=== PATIENT | female | born 1985 | race Caucasian/White ===

== ENCOUNTER → 2018-10-04 | Day surgery (SDC) | payer OTHER, MEDICARE ==
[~2018-10-04] MED LIST: FENTANYL CITRATE/PF 100MCG/2 ML INJ ONE; MIDAZOLAM HCL 2 MG/2 ML VIAL ONE; PROPOFOL IV EMULSION 10 MG/ML 50 ML VIAL ONE
--- OUTSIDE RECORDS SUMMARY | 2018-10-04 08:27 | XMS REPORT ---
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 Allergies, Adverse Reactions, Alerts This patient has no known allergies or adverse reactions. Medications This patient has no known medications. Results Test Description Test Time Test Comments Text Results Atomic Results Result Comments Abdomen 1 View (KUB) 2018-09-24 10:43:00 [place] [address] RADIOLOGY SERVICES REPORT Name: ELIA MONTES DE OCA Acct Number: [id number] :1985 Age:33 Sex:F Ord Phys: Elyssa Gaston MD Unit Number: [id number] [facility] Dr: NONE Status: ADM IN [address] [place] [address] Exam Date: 09/24/18 EXAM DESCRIPTION: RAD - Abdomen 1 View (KUB) - 09/24/2018 10:26 am CLINICAL HISTORY: Abdomen pain. FINDINGS: The bowel gas pattern is unremarkable. Moderate amount of stool suspected within the colon No significant abnormal calcification is displayed Signed By: Ravi Delgado MD Signed AT: 09/24/18 1043 Complete blood count (CBC) with automated white blood cell (WBC) differential 2018-09-24 00:08:00 White blood cell count (test ofyk=APS9887) 7.7 4.3-10.9 Blood erythrocytes count (number/volume) (test cgck=18091-4) 3.60 M/ul 3.86-4.86 Hemoglobin measurement (test gqcv=FGE3380) 11.4 g/dL 12.0-15.0 Blood hematocrit (volume fraction) (test wcoi=31199-1) 34.0 % 36.0-45.0 MCV (test nvic=AYU6067) 94.2 fL 80-100 31.7 MCHC (test code=MCHC) 33.7 g/dL 32.0-36.0 Platelets (test code=PLT) 187 152-406 Red Cell Distribution Width (test code=RDW) 12.9 % 12.1-15.2 Blood platelet mean volume (test mise=36278-9) 8.3 fL 7.6-11.3 Neutrophils % (test code=IAN%) 57.2 % 41.7-73.7 Lymphocytes/leuk NFr Bld (test dggb=91820-3) 33.1 % 15.3-44.8 Monocyte percentage (test heok=9702-7) 7.9 % 3.3-12.3 Eosinophil % (test qybl=293-5) 1.6 % 0-4.4 Basophil % (test spvb=88212-6) 0.2 % 0-1.3 Absolute neutrophil count (test zjzy=314-5) 4.4 1.8-8.0 Absolute lymphocyte count (test vpmg=60315-5) 2.6 0.7-4.9 Absolute monocyte count (test oocx=260-5) 0.6 0.1-1.3 Absolute Eosinophils (test code=EOA) 0.1 0-0.5 Absolute Basophils (test code=BASA) 0.0 0-0.5 Primary Language EnglishComplete blood count (CBC) with automated white blood cell (WBC) nglqdfljasfr0251-94-94 12:50:00* Test Item Value Reference Range Comments White blood cell count (test aubf=VVA1600) 6.4 4.3-10.9 Blood erythrocytes count (number/volume) (test econ=49310-1) 3.40 M/ul 3.86-4.86 Hemoglobin measurement (test svdd=SXA5468) 10.9 g/dL 12.0-15.0 Blood hematocrit (volume fraction) (test vwnr=43704-0) 32.2 % 36.0-45.0 MCV (test lzya=IKS4990) 94.7 fL 80-100 32.0 MCHC (test code=MCHC) 33.8 g/dL 32.0-36.0 Platelets (test code=PLT) 166 152-406 Red Cell Distribution Width (test code=RDW) 12.9 % 12.1-15.2 Blood platelet mean volume (test hpwh=93747-4) 8.3 fL 7.6-11.3 Neutrophils % (test code=IAN%) 60.6 % 41.7-73.7 Lymphocytes/leuk NFr Bld (test elux=22133-6) 30.0 % 15.3-44.8 Monocyte percentage (test gzcg=5823-3) 7.8 % 3.3-12.3 Eosinophil % (test wwme=143-9) 0.9 % 0-4.4 Basophil % (test pntv=54124-0) 0.7 % 0-1.3 Absolute neutrophil count (test ehdc=052-3) 3.9 1.8-8.0 Absolute lymphocyte count (test zdgn=72748-1) 1.9 0.7-4.9 Absolute monocyte count (test zkin=230-6) 0.5 0.1-1.3 Absolute Eosinophils (test code=EOA) 0.1 0-0.5 Absolute Basophils (test code=BASA) 0.0 0-0.5 Primary Language [facility] Metabolic Rukes6559-80-01 05:58:00* Test Item Value Reference Range Comments Serum or plasma sodium measurement (moles/volume) (test qovr=6036-9) 143 mmol/L 136-145 Potassium [Moles/volume] in Serum or Plasma (test cwnl=8626-7) 4.0 mmol/L 3.5-5.1 Chloride [Moles/volume] in Serum or Plasma (test dbqr=9510-3) 114 mmol/L 98-107 Carbon dioxide, total [Moles/volume] in Serum or Plasma (test klfl=3669-4) 22 mmol/L 21-32 Glucose [Mass/volume] in Serum or Plasma (test bvwk=4514-5) 90 mg/dL 74-106 Urea nitrogen [Mass/volume] in Serum or Plasma (test jpid=8844-0) 11 mg/dL 7-18 Creatinine [Mass/volume] in Serum or Plasma (test wdit=1470-6) 0.41 mg/dL 0.55-1.3 Glomerular Filtration Rate (test code=GFR) > 90 =/>90 FOR CHRONIC KIDNEY DISEASE: GFR STAGE DESCRIPTION=/>90 STAGE 1 NORMAL--OR-- MINIMAL KIDNEY DAMAGE WITH NORMAL GFR 60-89 STAGE 2 MILD DECREASE IN GFR 30-59 STAGE 3 MODERATE DECREASE IN GFR 15-29 STAGE 4 SEVERE DECREASE IN GFR <15 STAGE 5 KIDNEY FAILURE The Glomerular Filtration Rate (GFR) has been calculated using the IDMS-Traceable MDRD Study Equation. Calcium [Mass/volume] in Serum or Plasma (test ihiu=30455-3) 7.4 mg/dL 8.5-10.1 Primary Language EnglishUrine drug pbljsp3740-69-35 01:04:00* Test Item Value Reference Range Comments Phencyclidine [Presence] in Urine by Screen method (test mjgk=13503-3) Negative NEGATIVE CUT-OFF LEVEL: 25 ng/mL Benzodiazepines [Presence] in Urine by Screen method (test qzec=13655-5) Negative NEGATIVE CUT-OFF LEVEL: 200 ng/mL Benzoylecgonine [Presence] in Urine by Screen method (test ipvy=15556-5) Negative NEGATIVE CUT-OFF LEVEL: 300 ng/mL Amphetamines [Presence] in Urine by Screen method (test kipj=67812-2) Negative NEGATIVE CUT-OFF LEVEL: 1000 ng/mL Cannabinoids [Presence] in Urine by Screen method (test gmsj=94008-4) Positive NEGATIVE CUT-OFF LEVEL: 50 ng/mL Opiates [Presence] in Urine by Screen method (test mcrb=84658-1) Positive NEGATIVE CUT-OFF LEVEL: 2000 ng/mL Barbiturates [Presence] in Urine by Screen method (test mguu=86586-5) Negative NEGATIVE CUT-OFF LEVEL: 200 ng/mL Screening urine methadone detection using 300 ng/ml cutoff (test vhds=22123-0) Negative NEGATIVE CUT-OFF LEVEL: 300 ng/mL These results are screening test methodology and are to be used only for medical purposes. Positive results have not been confirmed. Unconfirmed screening results must not be used for non-medical purposes (employment or legal testing). For a confirmed analytical result, GM/MS is the preferred method and must be sent to a Reference Laboratory. Primary Language EnglishComplete blood count (CBC) with automated white blood cell (WBC) swkbmdlnttbj5216-30-59 00:01:00* Test Item Value Reference Range Comments White blood cell count (test asta=HUX3838) 6.9 4.3-10.9 Blood erythrocytes count (number/volume) (test secs=16282-4) 3.50 M/ul 3.86-4.86 Hemoglobin measurement (test aqbp=VXD0394) 11.3 g/dL 12.0-15.0 Blood hematocrit (volume fraction) (test aqob=28552-6) 33.3 % 36.0-45.0 MCV (test zsco=FMG8902) 95.1 fL 80-100 32.2 MCHC (test code=MCHC) 33.9 g/dL 32.0-36.0 Platelets (test code=PLT) 163 152-406 Red Cell Distribution Width (test code=RDW) 12.7 % 12.1-15.2 Blood platelet mean volume (test xjks=09584-4) 7.9 fL 7.6-11.3 Neutrophils % (test code=IAN%) 57.6 % 41.7-73.7 Lymphocytes/leuk NFr Bld (test ihvi=52945-4) 33.9 % 15.3-44.8 Monocyte percentage (test zouf=2354-1) 6.8 % 3.3-12.3 Eosinophil % (test jyir=404-7) 1.4 % 0-4.4 Basophil % (test yztc=36966-4) 0.3 % 0-1.3 Absolute neutrophil count (test vhsv=261-8) 4.0 1.8-8.0 Absolute lymphocyte count (test smji=82760-2) 2.3 0.7-4.9 Absolute monocyte count (test augj=869-2) 0.5 0.1-1.3 Absolute Eosinophils (test code=EOA) 0.1 0-0.5 Absolute Basophils (test code=BASA) 0.0 0-0.5 Primary Language EnglishAbdomen W Fjupq7796-17-49 16:08:00[place] [address] RADIOLOGY SERVICES REPORT Name: ELIA MONTES DE OCA Acct Number: [id number] :1985 Age:33 Sex:F Ord Phys: Kierra Lo MD Unit Number: [id number] [facility] Dr: NONE Status: ADM IN [address] [place] [address]A Exam Date: 09/22/18 EXAM DESCRIPTION: RAD - Abdomen W Erect - 09/22/2018 3:41 pm CLINICAL HISTORY: Abdomen pain. FINDINGS: The bowel gas pattern is unremarkable. A large amount of stool is present throughout the colon. Free air is not seen beneath the diaphragm Signed By: Ravi Delgado MD Signed AT: 1609 Hurlxaixxp0135-65-29 06:21:00* Test Item Value Reference Range Comments Urine color (test nyst=9123-0) YELLOW Urine appearance determination (test qzfe=6354-2) CLEAR Urine specific gravity measurement (test bkcj=3824-8) 1.025 1.005-1.030 Urine glucose detection (test mnwv=7549-4) Negative NEG Urine bilirubin detection (test sezb=2264-4) Negative NEG Urine Ketones (test code=UKET) NEGATIVE NEG Urine blood detection (test ksmf=50296-2) 2+ NEG Urine pH (test qpbi=9609-5) 6.0 5.0-7.0 Urinalysis with microscopy (test iphy=02657-5) NEGATIVE NEG Urine urobilinogen detection (test slme=02717-2) 1.0 0.2-1.0 Urine Nitrate (test code=UNIT) NEGATIVE NEG Urine Leukocyte Esterase (test code=UESTR) NEGATIVE NEG Primary Language Monegasque HOW IS URINE COLLECTED? Clean Catch UrineMicroscopic examination of wcxfn6486-68-42 06:21:00* Test Item Value Reference Range Comments Urine WBC (test code=UWBC) NONE SEEN <5 Urine sediment erythrocyte count by microscopy (number/high power field) (test abrd=40203-8) <5 NONE SEEN Bacteria detection in urine sediment by light microscopy (test ldgq=00629-9) <20 <20 Sqamous Epithelial (test code=SQEP) <5 NONE SEEN Urinalysis with reflex to culture (test dqds=87983-1) NOT NEEDED Culture is not indicated. Primary Language Monegasque HOW IS URINE COLLECTED? Clean Catch UrineBasic Metabolic Jlhvl9630-59-05 05:54:00* Test Item Value Reference Range Comments Serum or plasma sodium measurement (moles/volume) (test tivn=8396-4) 140 mmol/L 136-145 Potassium [Moles/volume] in Serum or Plasma (test xqbf=0251-4) 3.5 mmol/L 3.5-5.1 Chloride [Moles/volume] in Serum or Plasma (test opdi=7021-7) 112 mmol/L 98-107 Carbon dioxide, total [Moles/volume] in Serum or Plasma (test lenj=0654-8) 22 mmol/L 21-32 Glucose [Mass/volume] in Serum or Plasma (test mqhd=6657-1) 84 mg/dL 74-106 Urea nitrogen [Mass/volume] in Serum or Plasma (test axut=7011-7) 10 mg/dL 7-18 Creatinine [Mass/volume] in Serum or Plasma (test quiq=5569-6) 0.35 mg/dL 0.55-1.3 Glomerular Filtration Rate (test code=GFR) > 90 =/>90 FOR CHRONIC KIDNEY DISEASE: GFR STAGE DESCRIPTION=/>90 STAGE 1 NORMAL--OR-- MINIMAL KIDNEY DAMAGE WITH NORMAL GFR 60-89 STAGE 2 MILD DECREASE IN GFR 30-59 STAGE 3 MODERATE DECREASE IN GFR 15-29 STAGE 4 SEVERE DECREASE IN GFR <15 STAGE 5 KIDNEY FAILURE The Glomerular Filtration Rate (GFR) has been calculated using the IDMS-Traceable MDRD Study Equation. Calcium [Mass/volume] in Serum or Plasma (test ppbq=56453-3) 7.4 mg/dL 8.5-10.1 Primary Language EnglishMagnesium [Mass/volume] in Serum or Brrchq6641-61-82 05:54:00* Test Item Value Reference Range Comments Magnesium [Mass/volume] in Serum or Plasma (test uzsk=62390-2) 2.0 mg/dL 1.8-2.4 Primary Language EnglishComplete blood count (CBC) with automated white blood cell (WBC) yelrlbilwyoe4077-17-25 05:36:00* Test Item Value Reference Range Comments White blood cell count (test cpcj=UUN7226) 6.7 4.3-10.9 Blood erythrocytes count (number/volume) (test odnl=29643-8) 3.61 M/ul 3.86-4.86 Hemoglobin measurement (test lyqx=FPN1496) 11.6 g/dL 12.0-15.0 Blood hematocrit (volume fraction) (test nxpi=17541-0) 33.8 % 36.0-45.0 MCV (test fmfg=MKA2122) 93.5 fL 80-100 32.1 MCHC (test code=MCHC) 34.3 g/dL 32.0-36.0 Platelets (test code=PLT) 179 152-406 Red Cell Distribution Width (test code=RDW) 12.9 % 12.1-15.2 Blood platelet mean volume (test sjby=00361-3) 8.0 fL 7.6-11.3 Neutrophils % (test code=IAN%) 47.1 % 41.7-73.7 Lymphocytes/leuk NFr Bld (test kcoh=48190-8) 43.7 % 15.3-44.8 Monocyte percentage (test svry=0033-6) 8.2 % 3.3-12.3 Eosinophil % (test fzfc=577-9) 0.7 % 0-4.4 Basophil % (test zblj=58876-2) 0.3 % 0-1.3 Absolute neutrophil count (test pror=535-1) 3.1 1.8-8.0 Absolute lymphocyte count (test pfbq=99022-3) 2.9 0.7-4.9 Absolute monocyte count (test gujd=774-9) 0.5 0.1-1.3 Absolute Eosinophils (test code=EOA) 0.0 0-0.5 Absolute Basophils (test code=BASA) 0.0 0-0.5 Primary Language EnglishChoriogonadotropin [Units/volume] in Serum or Plasma 2018-09-21 15:56:00* Test Item Value Reference Range Comments Choriogonadotropin [Units/volume] in Serum or Plasma (test lnqk=33739-8) 02402 [iU]/L 1-3 Comment Bed:13Microscopic examination of hepdk0239-39-00 15:27:00* Test Item Value Reference Range Comments Urine WBC (test code=UWBC) <5 <5 Urine sediment erythrocyte count by microscopy (number/high power field) (test kdfi=64209-7) <5 NONE SEEN Bacteria detection in urine sediment by light microscopy (test peqk=84179-2) <20 <20 Sqamous Epithelial (test code=SQEP) 5-10 NONE SEEN Urinalysis with reflex to culture (test luao=49363-7) NOT NEEDED Culture is not indicated. Comment Bed:13Urine test at point of jovz2462-88-08 15:26:00* Test Item Value Reference Range Comments Urine Test (test code=UPG) POS NEG Urine specific gravity measurement (test ymdi=6412-2) 1.010 1.005-1.030 Tested by: elm BLOOD: TRACE GLUCOSE: NEG KETONES: 3+ LEUKOCYTES: NEG NITRITE: NE G PH: 7.0 PROTEIN: NEG elm POS elm TRACE NEG 3+ NEG NEG 7.0 NEG Y 1.010Urine dipstick testing at piaef-se-ypwb5594-05-17 15:26:00* Test Item Value Reference Range Comments Urine glucose detection (test tneo=8030-2) Negative NEG Urine Ketones (test code=UKET) 3+ NEG Urine blood detection (test xijw=30709-6) TRACE NEG Urine pH (test dvmk=7952-0) 7.0 5.0-7.0 Urinalysis with microscopy (test fjxv=31404-8) NEGATIVE NEG Urine Nitrate (test code=UNIT) NEGATIVE NEG Urine Leukocyte Esterase (test code=UESTR) NEGATIVE NEG Tested by: elm BLOOD: TRACE GLUCOSE: NEG KETONES: 3+ LEUKOCYTES: NEG NITRITE: NE G PH: 7.0 PROTEIN: NEG elm POS elm TRACE NEG 3+ NEG NEG 7.0 NEG Y 1.010Abdomen Pelvis W Ndplpavr1395-29-67 12:54:00[facility] [place] [address] RADIOLOGY SERVICES REPORT Name: ELIA MONTES DE OCA Acct Number: [id number] :1985 Age:33 Sex:F Ord Phys: Tom Arana Unit Number: [id number] Prim Care Dr: NONE Status: REG ER ER Exam Date: 09/21/18 EXAM DESCRIPTION: CTAbdomen Pelvis W Contrast - 09/21/2018 12:39 pm CLINICAL HISTORY: Abdominal pain. right flank pain, IV ONLY COMPARISON: Abdomen Exam Limited dated 09/21/2018 TECHNIQUE: Biphasic CT imaging of the abdomen and pelvis was performed with 100 ml non- ionic IV contrast. All CT scans are performed using dose optimization technique as appropriate and may include automated exposure control or mA/KV adjustment according to patient size. FINDINGS: The lung bases are clear. The liver, spleen, pancreas, adrenal glands and kidneys are within normal limits. No bowel obstruction, free air, free fluid or abscess. Cholecystectomy clips. No evidence of significant lymphadenopathy. The uterus and cervix appears edematous with trace fluid in the pelvis. Fluid is also noted in the endometrial stripe measuring up to 3 cm. IMPRESSION: Edematous appearance to the gynecologic organs with fluid in the endometrium and mild fluid in the pelvis noted. Advise clinical correlation for pelvic infla mmatory disease. Signed By: Js Gomez MD Signed AT: 09/05 11/23 1254 Basic Metabolic Pbjqf5996-43-00 11:05:00* Test Item Value Reference Range Comments Serum or plasma sodium measurement (moles/volume) (test venc=3437-2) 139 mmol/L 136-145 Potassium [Moles/volume] in Serum or Plasma (test kqgl=8463-2) 3.8 mmol/L 3.5-5.1 Chloride [Moles/volume] in Serum or Plasma (test rdhr=4368-4) 109 mmol/L 98-107 Carbon dioxide, total [Moles/volume] in Serum or Plasma (test nhaj=3184-2) 24 mmol/L 21-32 Glucose [Mass/volume] in Serum or Plasma (test molc=8402-9) 116 mg/dL 74-106 Urea nitrogen [Mass/volume] in Serum or Plasma (test aiwa=7118-2) 11 mg/dL 7-18 Creatinine [Mass/volume] in Serum or Plasma (test hzek=7877-4) 0.47 mg/dL 0.55-1.3 Glomerular Filtration Rate (test code=GFR) > 90 =/>90 FOR CHRONIC KIDNEY DISEASE: GFR STAGE DESCRIPTION=/>90 STAGE 1 NORMAL--OR-- MINIMAL KIDNEY DAMAGE WITH NORMAL GFR 60-89 STAGE 2 MILD DECREASE IN GFR 30-59 STAGE 3 MODERATE DECREASE IN GFR 15-29 STAGE 4 SEVERE DECREASE IN GFR <15 STAGE 5 KIDNEY FAILURE The Glomerular Filtration Rate (GFR) has been calculated using the IDMS-Traceable MDRD Study Equation. Calcium [Mass/volume] in Serum or Plasma (test zaqq=09815-2) 8.4 mg/dL 8.5-10.1 Comment Bed:13Liver (Hepatic) Yawzfkpl1348-30-09 11:05:00* Test Item Value Reference Range Comments Aspartate aminotransferase [Enzymatic activity/volume] in Serum or Plasma by With P-5 (test zuhw=68714-2) 8 U/L 15-37 Alanine aminotransferase [Enzymatic activity/volume] in Serum or Plasma by With P-5'- (test eajd=0217-8) 18 U/L 12-78 Alkaline phosphatase [Enzymatic activity/volume] in Serum or Plasma (test iwwx=6728-8) 44 U/L 45-117 Bilirubin.total [Mass/volume] in Serum or Plasma (test ipou=0135-6) 0.7 mg/dL 0.2-1.0 Bilirubin.direct [Mass/volume] in Serum or Plasma (test xwer=1051-7) 0.2 mg/dL 0-0.2 Protein [Mass/volume] in Serum or Plasma (test jpwz=6315-5) 6.5 g/dL 6.4-8.2 Albumin [Mass/volume] in Serum or Plasma by Bromocresol purple (BCP) dye binding meth (test uoql=13775-9) 3.6 g/dL 3.4-5.0 Globulin (test code=GLOB) 2.9 g/dL 2.3-3.5 Albumin/Globulin Ratio (test code=A/G) 1.2 1.1-1.8 Comment Bed:13Lipase [Enzymatic activity/volume] in Serum or Oowzar7837-28-05 11:05:00* Test Item Value Reference Range Comments Lipase [Enzymatic activity/volume] in Serum or Plasma (test srvi=8491-2) 123 U/L 73-393 Comment Bed:13Creatinine [Mass/volume] in Serum or Hobovk4161-84-64 10:43:00* Test Item Value Reference Range Comments Creatinine [Mass/volume] in Serum or Plasma (test sewn=4089-5) 0.46 mg/dL 0.55-1.3 Glomerular Filtration Rate (test code=GFRT) > 90 >60 FOR CHRONIC KIDNEY DISEASE: GFR STAGE >60 1 or 2 30-59 3 15-29 4 <15(or dialysis) 5 The Glomerular Filtration Rate (GFR) has been calculated using the IDMS-Traceable MDRD Study Equation. Abdomen Exam Zojzjbi2180-15-84 10:39:[address] [place] [address] [facility] REPORT Name: ELIA MONTES DE OCA Acct Number: [id number] :1985 Age:33 Sex:F Ord Phys: Tom Arana Unit Number: [id number] [facility] Dr: NONE Status: REG ER ER Exam Date: 09/21/18 EXAM DESCRIPTION: US - Abdomen Exam Limited - 09/21/2018 10:28 am CLINICAL HISTORY: abdominal pain, vomiting COMPARISON: No comparisons FINDINGS: The gallbladder demonstrates no gallstones. No pericholecystic fluid or gallbladder wall thickening. The common bile duct is normal measuring 5-6 mm. The liver demonstrates no findings of intrahepatic biliary dilatation. IMPRESSION: Unremarkable examination. Signed By: Js Gomez MD Signed AT: 09/21/18 1039 Complete blood count (CBC) with automated white blood cell (WBC) differential 2018-09-21 10:27:00* Test Item Value Reference Range Comments White blood cell count (test kxtk=PTJ6221) 9.6 4.3-10.9 Blood erythrocytes count (number/volume) (test zzpk=91585-6) 4.53 M/ul 3.86-4.86 Hemoglobin measurement (test dwyz=MSC6541) 14.4 g/dL 12.0-15.0 Blood hematocrit (volume fraction) (test zxqt=29548-4) 42.3 % 36.0-45.0 MCV (test ulrc=ULS6811) 93.3 fL 80-100 31.8 MCHC (test code=MCHC) 34.1 g/dL 32.0-36.0 Platelets (test code=PLT) 243 152-406 Red Cell Distribution Width (test code=RDW) 12.8 % 12.1-15.2 Blood platelet mean volume (test fpjs=32318-4) 7.8 fL 7.6-11.3 Neutrophils % (test code=IAN%) 77.0 % 41.7-73.7 Lymphocytes/leuk NFr Bld (test yext=72105-7) 16.5 % 15.3-44.8 Monocyte percentage (test iglq=0247-6) 6.2 % 3.3-12.3 Eosinophil % (test xgbo=406-1) 0.1 % 0-4.4 Basophil % (test obty=84494-7) 0.2 % 0-1.3 Absolute neutrophil count (test wxam=637-4) 7.4 1.8-8.0 Absolute lymphocyte count (test ctno=75956-3) 1.6 0.7-4.9 Absolute monocyte count (test mdhx=971-4) 0.6 0.1-1.3 Absolute Eosinophils (test code=EOA) 0.0 0-0.5 Absolute Basophils (test code=BASA) 0.0 0-0.5 Urine test at point of bibn1725-87-91 20:58:00* Test Item Value Reference Range Comments Urine Test (test code=UPG) POS NEG Urine specific gravity measurement (test fvqm=4613-8) 1.025 1.005-1.030 Tested by: rv BLOOD: TRACE GLUCOSE: NEG KETONES: 1+ LEUKOCYTES: 3+ NITRITE: NEG PH: 6.5 PROTEIN: 1+ rv POS rv TRACE NEG 1+ 3+ NEG 6.5 1+ Y 1.025Urine dipstick testing at wshsp-op-yfez5452-05-16 20:58:00* Test Item Value Reference Range Comments Urine glucose detection (test gqqv=9117-8) Negative NEG Urine Ketones (test code=UKET) 1+ NEG Urine blood detection (test yorb=82949-0) TRACE NEG Urine pH (test pnio=1351-3) 6.5 5.0-7.0 Urinalysis with microscopy (test yghn=46922-9) 1+ NEG Urine Nitrate (test code=UNIT) NEGATIVE NEG Urine Leukocyte Esterase (test code=UESTR) 3+ NEG Tested by: rv BLOOD: TRACE GLUCOSE: NEG KETONES: 1+ LEUKOCYTES: 3+ NITRITE: NEG PH: 6.5 PROTEIN: 1+ rv POS rv TRACE NEG 1+ 3+ NEG 6.5 1+ Y 1.025Head Brain Wo Dkqt3323-16-86 20:52:00[facility] [place] [address] RADIOLOGY SERVICES REPORT Name: ELIA MONTES DE OCA Acct Number: [id number] :1985 Age:33 Sex:F Ord Phys: Jose M Rodriguez NP Unit Number: [id number] [place] [facility] Dr: NONE Status: REG ER Exam Date: 09/20/18 EXAM DESCRIPTION: CT - Head Brain Wo Cont - 09/20/2018 8:46 pm CLINICAL HISTORY: Head injury with LOC;Headache Trauma, head injury. COMPARISON: <Comparisons> TECHNIQUE: All CT scans are performed using dose optimization technique as appropriate and may include automated exposure control or mA/KV adjustment according to patient size. FINDINGS: No intracranial hemorrhage, hydrocephalus or extra-axial fluid collection.No areas of brain edema or evidence of midline shift. The paranasal sinuses and mastoids are clear. The calvarium is intact. IMPRESSION: No acute intracranial abnormality. Signed By: Js Gomez MD Signed AT: 09/20/182051 Basic Metabolic Sayvu7561-64-36 20:42:00* Test Item Value Reference Range Comments Serum or plasma sodium measurement (moles/volume) (test vsot=2257-4) 139 mmol/L 136-145 Potassium [Moles/volume] in Serum or Plasma (test tkpv=6054-5) 3.6 mmol/L 3.5-5.1 Chloride [Moles/volume] in Serum or Plasma (test voqk=1124-7) 107 mmol/L 98-107 Carbon dioxide, total [Moles/volume] in Serum or Plasma (test owqi=9547-5) 26 mmol/L 21-32 Glucose [Mass/volume] in Serum or Plasma (test uvrx=1246-7) 97 mg/dL 74-106 Urea nitrogen [Mass/volume] in Serum or Plasma (test nfbj=8394-9) 11 mg/dL 7-18 Creatinine [Mass/volume] in Serum or Plasma (test vust=6588-7) 0.53 mg/dL 0.55-1.3 Glomerular Filtration Rate (test code=GFR) > 90 =/>90 FOR CHRONIC KIDNEY DISEASE: GFR STAGE DESCRIPTION=/>90 STAGE 1 NORMAL--OR-- MINIMAL KIDNEY DAMAGE WITH NORMAL GFR 60-89 STAGE 2 MILD DECREASE IN GFR 30-59 STAGE 3 MODERATE DECREASE IN GFR 15-29 STAGE 4 SEVERE DECREASE IN GFR <15 STAGE 5 KIDNEY FAILURE The Glomerular Filtration Rate (GFR) has been calculated using the IDMS-Traceable MDRD Study Equation. Calcium [Mass/volume] in Serum or Plasma (test wehx=60746-6) 8.9 mg/dL 8.5-10.1 Complete blood count (CBC) with automated white blood cell (WBC) differential 2018-09-20 20:32:00* Test Item Value Reference Range Comments White blood cell count (test yqgy=FUZ4549) 10.8 4.3-10.9 Blood erythrocytes count (number/volume) (test ubzx=40622-5) 4.58 M/ul 3.86-4.86 Hemoglobin measurement (test rafz=QRJ0458) 14.6 g/dL 12.0-15.0 Blood hematocrit (volume fraction) (test irbj=07085-9) 43.3 % 36.0-45.0 MCV (test ndaw=ONC9991) 94.5 fL 80-100 31.9 MCHC (test code=MCHC) 33.8 g/dL 32.0-36.0 Platelets (test code=PLT) 230 152-406 Red Cell Distribution Width (test code=RDW) 13.0 % 12.1-15.2 Blood platelet mean volume (test clus=41444-2) 7.8 fL 7.6-11.3 Neutrophils % (test code=IAN%) 67.4 % 41.7-73.7 Lymphocytes/leuk NFr Bld (test bdwt=74448-8) 23.6 % 15.3-44.8 Monocyte percentage (test uths=3614-6) 7.7 % 3.3-12.3 Eosinophil % (test fujx=219-4) 1.0 % 0-4.4 Basophil % (test ucmf=61000-4) 0.3 % 0-1.3 Absolute neutrophil count (test sqcn=091-7) 7.3 1.8-8.0 Absolute lymphocyte count (test mdny=82446-4) 2.5 0.7-4.9 Absolute monocyte count (test hrdc=244-4) 0.8 0.1-1.3 Absolute Eosinophils (test code=EOA) 0.1 0-0.5 Absolute Basophils (test code=BASA) 0.0 0-0.5 Comment Bed:[address] [place] [address] Single Gcit3755-09-54 08:17:00[place] [address] [facility] REPORT Name: ELIA MONTES DE OCA Acct Number: [id number] :1985 Age:33 Sex:F Ord Phys: Ryan Swain MD Unit Number: [id number] [facility] Dr: NONE Status: DEP ER ER Exam Date: 06/05/18 EXAM DESCRIPTION: RAD - Chest Single View - 06/05/2018 12:35 am CLINICAL HISTORY: CHEST PAIN Chest pain. COMPARISON: No comparisons FINDINGS: Portable techni que limits examination quality. The lungs are grossly clear. The heart is normal in size. No displaced fractures. IMPRESSION: No acute intrathoraci c process suspected. Signed By: Js Gomez MD Signed AT: 06/05/18 0817 Prothrombin time (PT) with international normalized ratio (INR) 2018-06-05 01:16:00* Test Item Value Reference Range Comments PT Prothrombin Time (test code=PROTIME) 11.9 s 9.5-12.5 INR in Blood by Coagulation assay (test vfch=67850-6) 1.01 Monitor pts using INR value (not prothrombin time) INR Coumadin Therapy: Low Range (prophylaxis) 2.0-3.0 High Range (high risk of clot formation) 2.5-3.5 NComplete blood count (CBC) with automated white blood cell (WBC) differential 2018-06-05 01:14:00* Test Item Value Reference Range Comments White blood cell count (test kiac=[id number]) 7.1 4.3-10.9 Blood erythrocytes count (number/volume) (test qkue=92899-9) 4.48 M/ul 3.86-4.86 Hemoglobin measurement (test rxir=DUZ0452) 14.2 g/dL 12.0-15.0 Blood hematocrit (volume fraction) (test cjvd=03553-5) 41.6 % 36.0-45.0 MCV (test mvdv=VVT0920) 92.9 fL 80-100 31.6 MCHC (test code=MCHC) 34.0 g/dL 32.0-36.0 Platelets (test code=PLT) 232 152-406 Red Cell Distribution Width (test code=RDW) 12.8 % 12.1-15.2 Blood platelet mean volume (test juln=29869-3) 8.9 fL 7.6-11.3 Neutrophils % (test code=IAN%) 42.6 % 41.7-73.7 Lymphocytes/leuk NFr Bld (test sfqr=72071-6) 44.4 % 15.3-44.8 Monocyte percentage (test xihn=6805-0) 7.4 % 3.3-12.3 Eosinophil % (test bfvm=466-8) 5.2 % 0-4.4 Basophil % (test ntch=73579-5) 0.4 % 0-1.3 Absolute neutrophil count (test sqvb=421-4) 3.0 1.8-8.0 Absolute lymphocyte count (test ujib=44620-9) 3.1 0.7-4.9 Absolute monocyte count (test qyrd=408-4) 0.5 0.1-1.3 Absolute Eosinophils (test code=EOA) 0.4 0-0.5 Absolute Basophils (test code=BASA) 0.0 0-0.5 Basic Metabolic Uihdc7422-12-62 01:09:00* Test Item Value Reference Range Comments Serum or plasma sodium measurement (moles/volume) (test qltf=8736-3) 142 mmol/L 136-145 Potassium [Moles/volume] in Serum or Plasma (test ybri=7730-2) 3.9 mmol/L 3.5-5.1 Chloride [Moles/volume] in Serum or Plasma (test tuys=5171-9) 111 mmol/L 98-107 Carbon dioxide, total [Moles/volume] in Serum or Plasma (test qpia=3672-8) 24 mmol/L 21-32 Glucose [Mass/volume] in Serum or Plasma (test oocj=6227-6) 110 mg/dL 74-106 Urea nitrogen [Mass/volume] in Serum or Plasma (test eqzd=8000-8) 16 mg/dL 7-18 Creatinine [Mass/volume] in Serum or Plasma (test ptiv=0759-8) 0.78 mg/dL 0.55-1.3 Glomerular Filtration Rate (test code=GFR) 85 mL =/>90 FOR CHRONIC KIDNEY DISEASE: GFR STAGE DESCRIPTION=/>90 STAGE 1 NORMAL--OR-- MINIMAL KIDNEY DAMAGE WITH NORMAL GFR 60-89 STAGE 2 MILD DECREASE IN GFR 30-59 STAGE 3 MODERATE DECREASE IN GFR 15-29 STAGE 4 SEVERE DECREASE IN GFR <15 STAGE 5 KIDNEY FAILURE The Glomerular Filtration Rate (GFR) has been calculated using the IDMS-Traceable MDRD Study Equation. Calcium [Mass/volume] in Serum or Plasma (test ndhy=28594-7) 8.1 mg/dL 8.5-10.1 Liver (Hepatic) [place]2315-72-70 01:09:00* Test Item Value Reference Range Comments Aspartate aminotransferase [Enzymatic activity/volume] in Serum or Plasma by With P-5 (test ftln=93386-5) 11 U/L 15-37 Alanine aminotransferase [Enzymatic activity/volume] in Serum or Plasma by With P-5'- (test afza=2833-1) 16 U/L 12-78 Alkaline phosphatase [Enzymatic activity/volume] in Serum or Plasma (test hxkd=3780-9) 45 U/L 45-117 Bilirubin.total [Mass/volume] in Serum or Plasma (test janv=1543-5) 0.3 mg/dL 0.2-1.0 Bilirubin.direct [Mass/volume] in Serum or Plasma (test ahca=2874-3) 0.1 mg/dL 0-0.2 Protein [Mass/volume] in Serum or Plasma (test fanz=9833-7) 6.1 g/dL 6.4-8.2 Albumin [Mass/volume] in Serum or Plasma by Bromocresol purple (BCP) dye binding meth (test gsyn=87488-3) 3.5 g/dL 3.4-5.0 Globulin (test code=GLOB) 2.6 g/dL 2.3-3.5 Albumin/Globulin Ratio (test code=A/G) 1.3 1.1-1.8 Troponin I.cardiac [Mass/volume] in Serum or Qtfsof3144-61-41 01:09:00* Test Item Value Reference Range Comments Troponin I.cardiac [Mass/volume] in Serum or Plasma (test heuv=22521-6) <0.02 ng/mL 0.0-0.045 Comment Bed:6 Test Ordered to Rule Out VTE/DVT? NNatriuretic peptide.B prohormone N-Terminal [Mass/volume] in Serum or Kdeesu7274-10-09 01:09:00* Test Item Value Reference Range Comments Natriuretic peptide.B prohormone N-Terminal [Mass/volume] in Serum or Plasma (test gpge=01609-6) 98 pg/mL <125 Comment Bed:6 Test Ordered to Rule Out VTE/DVT? NMagnesium [Mass/volume] in Serum or Heuwsl4812-77-20 01:09:00* Test Item Value Reference Range Comments Magnesium [Mass/volume] in Serum or Plasma (test kmon=84408-2) 1.9 mg/dL 1.8-2.4 Comment Bed:6 Test Ordered to Rule Out VTE/DVT? NUrine rrzjiqa4352-37-42 16:33:00* Test Item Value Reference Range Comments Urine culture (test qxdj=948-5) MIXED SHARON. Hep B Surface AG w/ Tatsqwj5694-43-23 07:25:00* Test Item Value Reference Range Comments Serum hepatitis B virus surface antigen detection (test xzyz=3716-1) Nonreactive Nonreactive Confirmatory hepatitis B virus surface antigen assay (test jhuy=97630-3) REPORT Not required according to the current package insert. Primary Language EnglishQualitative serum rapid plasma reagin (RPR) test 2017-01-17 23:59:00* Test Item Value Reference Range Comments Qualitative serum rapid plasma reagin (RPR) test (test qupi=28138-4) Negative NON-REACT RPR titer (test vnnw=18290-8) Not Done Primary Language EnglishType + Ab Scn Pnl Yfl5268-31-68 21:40:00* Test Item Value Reference Range Comments ABO + Rh Bld (test qrwr=405-1) A POSITIVE IAT Comp-Sp Reag SerPl Ql (test mpke=8349-7) NEGATIVE Primary Language Monegasque NO QTwawshrlzp1235-11-58 20:59:00* Test Item Value Reference Range Comments Urine color (test efbx=0880-2) YELLOW Urine appearance determination (test jbdi=0104-0) CLEAR Urine specific gravity measurement (test wcqh=4468-3) 1.020 1.005-1.030 Urine glucose detection (test lnho=0478-1) Negative NEG Urine bilirubin detection (test lnjq=1900-4) Negative NEG Urine Ketones (test code=UKET) NEGATIVE NEG Urine blood detection (test ufue=41164-5) Negative NEG Urine pH (test hptu=0182-6) 6.5 5.0-7.0 Urinalysis with microscopy (test ongh=52431-2) NEGATIVE NEG Urine urobilinogen detection (test rwci=85523-4) 0.2 0.2-1.0 Urine nitrate measurement (test wvoz=36542-5) NEGATIVE NEG Urine Leukocyte Esterase (test code=UESTR) 1+ NEG Primary Language EnglishMicroscopic examination of auiij6370-77-92 20:59:00* Test Item Value Reference Range Comments Urine WBC (test code=UWBC) 5-10 <5 Urine sediment erythrocyte count by microscopy (number/high power field) (test nqkz=58527-3) <5 NONE SEEN Bacteria detection in urine sediment by light microscopy (test ttur=17523-6) <20 <20 Sqamous Epithelial (test code=SQEP) 5-10 NONE SEEN Urinalysis with reflex to culture (test mkld=11295-0) REFLEXED Primary Language EnglishHIV (1&2) Antibody Kosoh8367-15-43 20:14:00* Test Item Value Reference Range Comments HIV (1\T\2) Antibody Rapid (test code=HIVRAPID) NONREACTIVE NONREACTIVE Called to REGINE HOYOS RN at 2010 by IVANCH1 Was there 100% Readback? Y Primary Language EnglishComplete blood count (CBC) with automated white blood cell (WBC) aonzzslhllsn1106-69-37 19:57:00* Test Item Value Reference Range Comments White blood cell count (test lwjm=WFK8700) 10.0 4.3-10.9 Blood erythrocytes count (number/volume) (test xlrf=81580-0) 4.55 M/ul 3.86-4.86 Hemoglobin measurement (test pbyq=LQT2756) 14.3 g/dL 12.0-15.0 Blood hematocrit (volume fraction) (test slop=89826-2) 40.9 % 36.0-45.0 MCV (test cxbb=37159-3) 89.8 fL 80-100 MCH (test gpgj=24216-6) 31.5 pg 27.0-35.0 MCHC (test code=MCHC) 35.1 g/dL 32.0-36.0 Platelets (test code=PLT) 204 152-406 Red Cell Distribution Width (test code=RDW) 12.5 % 12.1-15.2 Blood platelet mean volume (test juhm=43107-0) 8.5 fL 7.6-11.3 Neutrophils % (test code=IAN%) 75.6 % 41.7-73.7 Lymphocytes/leuk NFr Bld (test eani=10161-5) 16.2 % 15.3-44.8 Monocyte percentage (test yuwx=2506-9) 7.2 % 3.3-12.3 Eosinophil % (test gnlg=568-1) 0.5 % 0-4.4 Basophil % (test xheg=50083-2) 0.5 % 0-1.3 Absolute neutrophil count (test rtmx=496-5) 7.5 1.8-8.0 Absolute lymphocyte count (test qszs=25344-9) 1.6 0.7-4.9 Absolute monocyte count (test oinz=470-6) 0.7 0.1-1.3 Absolute Eosinophils (test code=EOA) 0.1 0-0.5 Absolute Basophils (test code=BASA) 0.1 0-0.5 Primary Language EnglishAmniotic fluid pH zdgqfahnxkc7125-56-83 06:24:00* Test Item Value Reference Range Comments Amniotic fluid pH measurement (test ejiv=0590-0) >7 POSITIVE FOR AMNIOTIC FLUID Primary Language Monegasque Mia White, FRAN 7 OR GREATER YUrinalysis with lwjqgyqtyi5659-10-24 03:09:00* Test Item Value Reference Range Comments Urine color (test sogl=1416-6) YELLOW Urine appearance determination (test jshx=2874-3) CLEAR Urine specific gravity measurement (test zwop=4994-1) 1.015 1.005-1.030 Urine glucose detection (test pbhm=6610-7) Negative NEG Urine bilirubin detection (test vsgk=8159-5) Negative NEG Urine Ketones (test code=UKET) NEGATIVE NEG Urine blood detection (test ncxr=22101-6) Negative NEG Urine pH (test ulfh=2488-1) 6.5 5.0-7.0 Urinalysis with microscopy (test sznt=67104-0) NEGATIVE NEG Urine urobilinogen detection (test nfin=84132-8) 0.2 0.2-1.0 Urine nitrate measurement (test ajvf=33235-4) NEGATIVE NEG Urine Leukocyte Esterase (test code=UESTR) TRACE NEG Urine WBC (test code=UWBC) <5 <5 Urine sediment erythrocyte count by microscopy (number/high power field) (test fkgn=90090-9) <5 NONE SEEN Bacteria detection in urine sediment by light microscopy (test qsvq=93358-4) <20 <20 Sqamous Epithelial (test code=SQEP) 5-10 NONE SEEN Urinalysis with reflex to culture (test jhba=08135-4) NOT NEEDED Culture is not indicated. Primary Language Monegasque HOW IS URINE COLLECTED? Clean Catch UrineInfluenza Type A Uslgbzs0304-98-85 07:54:00* Test Item Value Reference Range Comments FLU A ----- (test code=FLUA) NEGATIVE (could be below detectable limits, suggest culture) Comment Bed:13Influenza Type B Bzkcdzl9835-51-76 07:54:00* Test Item Value Reference Range Comments FLU B ----- (test code=FLUB) NEGATIVE (could be below detectable levels, suggest culture) Comment Bed:13Urine test at point of jcaa2984-80-73 07:15:00* Test Item Value Reference Range Comments Urine Test (test code=UPG) POS NEG Urine specific gravity measurement (test nfzn=7674-0) 1.020 1.005-1.030 Tested by: zr BLOOD: NEG GLUCOSE: NEG KETONES: NEG LEUKOCYTES: TRACE NITRITE: NE G PH: 7.5 PROTEIN: NEG zr POS zr NEG NEG NEG TRACE NEG 7.5 NEG Y 1.020Urine dipstick testing at mimpm-ml-izjv2226 07:15:00* Test Item Value Reference Range Comments Urine glucose detection (test xoeu=6920-7) Negative NEG Urine Ketones (test code=UKET) NEGATIVE NEG Urine blood detection (test fyrz=66691-8) Negative NEG Urine pH (test rcfp=9960-8) 7.5 5.0-7.0 Urinalysis with microscopy (test oqqu=71276-3) NEGATIVE NEG Urine nitrate measurement (test cjlc=62932-1) NEGATIVE NEG Urine Leukocyte Esterase (test code=UESTR) TRACE NEG Tested by: zr BLOOD: NEG GLUCOSE: NEG KETONES: NEG LEUKOCYTES: TRACE NITRITE: NE G PH: 7.5 PROTEIN: NEG zr POS zr NEG NEG NEG TRACE NEG 7.5 NEG Y 1.020
[2018-10-04 10:50] VITALS: BP 136/74
--- NOTE | 2018-10-04 17:36 | Operative Report ---
DATE OF PROCEDURE: 10/04/2018 SURGEON: Jeferson Rothman MD PROCEDURE: Esophagogastroduodenoscopy with biopsies. REFERRING PHYSICIAN: Yennifer Rothman. INDICATION FOR EGD: Upper abdominal pain, heartburn, and bloating. MEDICATION: The patient was done under MAC. Please see anesthesiologist's note. PROCEDURE IN DETAIL: With the patient in left lateral decubitus position, a flexible fiberoptic Olympus gastroscope was introduced into the esophagus under direct visualization without any difficulty. There was some patchy erythema noted in distal esophagus. The GE junction was nodular that was biopsied. The scope was then advanced with ease into her stomach. Mucosa overlying the antrum and the body revealed some diffuse erythema and usct-er-qcvzeabp edema. Biopsies were obtained and sent to stain for H pylori. The pylorus was of normal contour and shape. It was intubated with ease and the scope was advanced all the way to the second portion of the duodenum. Biopsies were obtained from the proximal second portion and duodenal bulb to rule out sprue. The scope was then withdrawn back into the stomach and retroflexed and mucosa overlying the fundus and cardia appeared to be within normal limits. The scope was then straightened out. The stomach was decompressed. The scope was subsequently withdrawn. The patient tolerated procedure well. IMPRESSION: 1. Distal esophagitis. 2. GE junction, nodular, biopsied. 3. Gastritis, biopsied. Biopsies sent to stain for H pylori. 4. Rule out sprue. PLAN: Follow up histology. Initiate Protonix 40 mg one p.o. q.a.m. before meals. Jeferson Rothman MD [facility] [place]/[facility] [place] /[id number]
== END | disposition home or self-care (01) ==
LOC: OR 08:22
PROVIDERS: ATTEND Internal Medicine Gastroenterology
DX: K29.70 Gastritis, unspecified, without bleeding (principal); Q40.8 Other specified congenital malformations of upper alimentary tract; K20.9 Esophagitis, unspecified; K31.89 Other diseases of stomach and duodenum; R19.7 Diarrhea, unspecified; R03.0 Elevated blood-pressure reading, without diagnosis of hypertension; F17.210 Nicotine dependence, cigarettes, uncomplicated
CPT/HCPCS: 36415; 43239; 84702; J2250; J2704